=== PATIENT | female | born 1940 | race Caucasian/White ===

== ENCOUNTER 2022-10-16 13:07 | Inpatient (IN) | payer OTHER ==
[~2022-10-16] VITALS: Ht 152.4 cm; Wt 75.7 kg
[2022-10-16] MEDS ORDERED: NORVASC2.5 M1 PO (13:16)
--- NOTE | 2022-10-16 13:16 | NUR ---
PTE ALERTA,ESTABLE Y ORIENTADA.ESTA REFIERE QUE DESDE HACE 2 DIASSE LACERO EL DEDO PULGAR DEL PIES JANEE
--- NOTE | 2022-10-16 13:44 | NUR ---
PTE ALERTA,ESTABLE Y ORIENTADA.SE EDUCA SOBRE EL TRATAMIENTO QUE RECIBIRA EN EL HOSPITAL Y ESTA REFIERE ENTENDER. SE LE LINDA MUESTRAS DE [facility] ORDEN MEDICA
--- NOTE | 2022-10-16 15:36 | NUR ---
SE LLAMA A BANCO DE [facility] Y SE HABLA CON SOBRE SI PTE TIENE RECORD PREVIO Y PARA REQUISAR 5 UNIDADES DE PRBC FRACCIONADAS. BARRETT INDICA QUE PTE NO TIENE RECORD PREVIO Y HAY QUE COLECTAR TERCER TUBO. SE ORIENTA A PTE SOBRE TRATAMIENTO A SEGUIR, BARRETT REFIERE ENTENDER. SE LE COLECTA TUBOS YURI Y TERCER TUBO, UTILIZANDO MEDIDAS ASEPTICAS.
[2022-10-18] MEDS ORDERED: METOPROLOL SUCC50 MG (13:41)
[2022-10-18] MEDS ORDERED: FAMOTIDINE20 MG (13:41)
[2022-11-07] MEDS ORDERED: LIDODERM1 EACH TOP (15:57)
[2022-11-07] MEDS ORDERED: TOPROL XL50 M1 PO (15:57)
[2022-11-07] MEDS ORDERED: HYDRALAZINE HCL25 MG PO (15:57)
[2022-11-07] MEDS ORDERED: GABAPENTIN300 MG PO (15:57)
[2022-11-07] MEDS ORDERED: INTEGRA PLUS C1 EACH PO (15:57)
[2022-11-07] MEDS ORDERED: Neurin-Sl Tablet Sl SL (15:57)
[2022-11-07] MEDS ORDERED: AMLODIPINE BESY10 MG PO (15:57)
[2022-11-07] MEDS ORDERED: PROTEINEX-18 LI30 ML PO (15:57)
== END 2022-11-08 11:38 | DRG 240 ==
LOC: ER 13:07 → ICU 18:14 → ICU-2 18:14 → ICU 22:11 → MEDI 11-03 19:18
PROVIDERS: Surgery; ADMIT Internal Medicine; ATTEND Internal Medicine
PROC: BW21ZZZ Computerized Tomography (CT Scan) of Abdomen and Pelvis (ICD-10-PCS; 2022-10-16)
PROC: B54DZZZ Ultrasonography of Bilateral Lower Extremity Veins (ICD-10-PCS; 2022-10-16)
PROC: 30233N1 Transfusion of Nonautologous Red Blood Cells into Peripheral Vein, Percutaneous Approach (ICD-10-PCS; 2022-10-17)
PROC: B24BYZZ Ultrasonography of Heart with Aorta using Other Contrast (ICD-10-PCS; 2022-10-17)
PROC: 4A12X45 Monitoring of Cardiac Electrical Activity, Ambulatory, External Approach (ICD-10-PCS; 2022-10-17)
PROC: 02HV33Z Insertion of Infusion Device into Superior Vena Cava, Percutaneous Approach (ICD-10-PCS; 2022-10-24)
PROC: 30243N1 Transfusion of Nonautologous Red Blood Cells into Central Vein, Percutaneous Approach (ICD-10-PCS; 2022-10-30)
PROC: 0Y6J0Z2 Detachment at Left Lower Leg, Mid, Open Approach (ICD-10-PCS; principal; 2022-11-01 16:00)
DX: I70.262 Atherosclerosis of native arteries of extremities with gangrene, left leg (principal); L97.528 Non-pressure chronic ulcer of other part of left foot with other specified severity; I70.222 Atherosclerosis of native arteries of extremities with rest pain, left leg; D50.8 Other iron deficiency anemias; L03.032 Cellulitis of left toe; Z53.29 Procedure and treatment not carried out because of patient's decision for other reasons; R41.0 Disorientation, unspecified; R23.0 Cyanosis; F43.20 Adjustment disorder, unspecified; R53.81 Other malaise; R19.5 Other fecal abnormalities; D50.0 Iron deficiency anemia secondary to blood loss (chronic); L60.8 Other nail disorders; K57.30 Diverticulosis of large intestine without perforation or abscess without bleeding; I10 Essential (primary) hypertension; E66.3 Overweight; Z68.26 Body mass index [BMI] 26.0-26.9, adult
CPT/HCPCS: 73206